=== PATIENT | male | born 1970 | race Caucasian/White ===

== ENCOUNTER 2018-03-12 17:12 | Emergency (ER) | payer OTHER ==
[~2018-03-12] VITALS: Ht 188 cm; Wt 104.3 kg
[2018-03-12 17:19] VITALS: Ht 188 cm; Wt 104.3 kg
[2018-03-12 20:05] VITALS: BP 140/83
== END 2018-03-12 20:05 | disposition home or self-care (01) ==
LOC: ED 17:12
DX: S05.41XA Penetrating wound of orbit with or without foreign body, right eye, initial encounter (principal); S00.211A Abrasion of right eyelid and periocular area, initial encounter; F10.10 Alcohol abuse, uncomplicated; I10 Essential (primary) hypertension; W18.30XA Fall on same level, unspecified, initial encounter; Y93.89 Activity, other specified; Y92.89 Other specified places as the place of occurrence of the external cause; Y99.8 Other external cause status
CPT/HCPCS: 90715

== ENCOUNTER 2018-03-14 10:20 | Emergency (ER) | payer OTHER ==
[~2018-03-14] VITALS: Ht 188 cm; Wt 115.2 kg
[2018-03-14 10:26] VITALS: BP 152/107; Ht 188 cm; Wt 115.2 kg
== END 2018-03-14 11:01 | disposition home or self-care (01) ==
LOC: ED 10:20
DX: S01.111D Laceration without foreign body of right eyelid and periocular area, subsequent encounter (principal); I10 Essential (primary) hypertension; F17.210 Nicotine dependence, cigarettes, uncomplicated; Z91.041 Radiographic dye allergy status; W26.8XXD Contact with other sharp object(s), not elsewhere classified, subsequent encounter

== ENCOUNTER 2018-03-19 07:49 | Emergency (ER) | payer OTHER ==
[~2018-03-19] VITALS: Ht 188 cm; Wt 115.7 kg
[2018-03-19 07:56] VITALS: Ht 188 cm; Wt 115.7 kg
[2018-03-19 10:26] VITALS: BP 109/65
== END 2018-03-19 10:26 | disposition home or self-care (01) ==
LOC: ED 07:49
DX: S01.411D Laceration without foreign body of right cheek and temporomandibular area, subsequent encounter (principal); I10 Essential (primary) hypertension; Z88.8 Allergy status to other drugs, medicaments and biological substances